=== PATIENT | female | born 2000 | race Caucasian/White ===

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

== ENCOUNTER 2019-01-26 23:43 | Inpatient (IN) | payer OTHER ==
[~2019-01-26] VITALS: Ht 149.9 cm; Wt 71.8 kg
[~2019-01-26 23:43] MED LIST: INSU100I31 SQ; Insulin Glargine SC; LEVO25TA6 PO; NOVO3I SC
[2019-01-27] VITALS (17 sets, daily range): BP systolic 90–124; BP diastolic 61–84; PULSE 85–98; RESP 13–25; Ht 149.9 cm; Wt 71.8 kg
[2019-01-27] MEDS ORDERED: ONDANSETRON 4 MG INJ IV STA (00:44)
[2019-01-27] MEDS ORDERED: SOD CHLORIDE 0.9% 1,000 ML IV ONE (01:00)
[2019-01-27] MEDS ORDERED: NS + KCL 30 MEQ 1,000 ML IV SCH ×2 (01:31→03:00)
[2019-01-27] MEDS ORDERED: INSULIN REGULAR, HUMAN 100 UNIT in SOD CHLORIDE 0.9% 100 ML IV SCH ×4 (02:00→03:00)
[2019-01-27] MEDS ORDERED: LACTATED RINGER'S 690 ML IV ONE (02:00)
[2019-01-27] MEDS ORDERED: DEXTROSE 50% 50 ML SYRINGE IV PRN ×6 (02:00→18:30)
[2019-01-27] MEDS ORDERED: MAGNESIUM SULFATE 1 GM/D5W 100 ML IVPB ONE (03:00)
[2019-01-27] MEDS ORDERED: D10/0.45% NACL + KCL 40 MEQ 1,000 ML IV SCH (03:00)
[2019-01-27] MEDS ORDERED: SOD CHLORIDE 0.9% 1,000 ML IV SCH (03:00)
[2019-01-27] MEDS ORDERED: SODIUM PHOSPHATE 15 MMOL in SOD CHLORIDE 0.9% 250 ML IV ONE (03:00)
[2019-01-27] MEDS: ACCU-CHEK XX SCH ×17 (03:00→18:00)
[2019-01-27] MEDS ORDERED: DEXTROSE 10%/0.45% NACL 1,000 ML IV SCH (03:00)
[2019-01-27] MEDS ORDERED: ONDANSETRON 4 MG INJ IV PRN (03:00)
[2019-01-27] MEDS: D10/0.45% NACL + KCL 30 MEQ 1,000 ML IV SCH ×2 (03:00→13:21)
[2019-01-27] MEDS ORDERED: NS + KCL 40 MEQ 1,000 ML IV SCH (03:00)
[2019-01-27] MEDS ORDERED: D10/0.45% NACL + KCL 30 MEQ 1,000 ML IV SCH (03:00)
[2019-01-27] MEDS ORDERED: ACETAMINOPHEN 325 MG TAB PO ONE (03:30)
[2019-01-27] MEDS ORDERED: INSULIN GLARGINE [LANTus] (100 UNITS/ML) SYG SC ONE (08:00)
[2019-01-27] MEDS ORDERED: SODIUM PHOSPHATE 30 MMOL in SOD CHLORIDE 0.9% 250 ML IV ONE (08:00)
[2019-01-27] MEDS ORDERED: MAGNESIUM SULFATE 2 GM/50 ML 50 ML IVPB ONE (08:20)
[2019-01-27] MEDS ORDERED: POTASSIUM CHLORIDE (SR) 20 MEQ TAB PO STA (14:24)
[2019-01-27] MEDS ORDERED: POTASSIUM PHOSPHATE 40 MEQ in SOD CHLORIDE 0.9% 250 ML IVPB ONE (18:00)
[2019-01-27] MEDS ORDERED: GLUCAGON 1 MG INJ IM PRN (18:30)
[2019-01-27] MEDS ORDERED: GLUCOSE GEL 15 GRAM TUBE BUCCAL PRN (18:30)
[2019-01-27] MEDS ORDERED: GLUCOSE GEL 15 GRAM TUBE PO PRN ×2 (18:30)
[2019-01-27] MEDS: INSULIN GLARGINE [LANTus] (100 UNITS/ML) SYG SC SCH (19:48)
[2019-01-27] MEDS: INSULIN ASPART [NOVOLOG] 3 ML PEN SC SCH ×3 (19:49→23:10)
[2019-01-28] VITALS (10 sets, daily range): BP systolic 92–116; BP diastolic 53–80; PULSE 70–93; RESP 13–22
[2019-01-28] MEDS ORDERED: ACCU-CHEK XX SCH (02:00)
[2019-01-28] MEDS ORDERED: LEVOTHYROXINE 25 MCG TAB PO SCH (06:00)
[2019-01-28] MEDS ORDERED: POTASSIUM CHLORIDE (SR) 20 MEQ TAB PO STA (07:02)
[2019-01-28] MEDS: INSULIN ASPART [NOVOLOG] 3 ML PEN SC SCH ×2 (07:41→07:42)
[2019-01-28] MEDS: INSULIN GLARGINE [LANTus] (100 UNITS/ML) SYG SC SCH (08:15)
== END 2019-01-28 11:00 | disposition home or self-care (01) | DRG 639 ==
LOC: E/R 23:43 → ICU 01-27 02:59
PROVIDERS: ADMIT Internal Medicine; ATTEND Internal Medicine
DX: E10.10 Type 1 diabetes mellitus with ketoacidosis without coma (principal); E03.9 Hypothyroidism, unspecified; Z91.19 Patient's noncompliance with other medical treatment and regimen
CPT/HCPCS: 36415; 80048; 81001; 81025; 82803; 82962; 83036; 83735; 84100; 85025; 87081; 96361; 96374; 96375; J1815; J2405; J3475; J3480; J7030; J7050; J7120